=== PATIENT | female | born 1965 | race Caucasian/White ===

== ENCOUNTER 2020-11-11 19:21 | Emergency (ER) | payer OTHER ==
--- NOTE | 2020-11-11 20:48 | EDM.PDOC ---
ED HPI GENERAL MEDICAL PROBLEM - General Chief Complaint: Laceration Stated Complaint: FISH HOOK RIGHT HAND Time Seen by Provider: 11/11/20 20:34 Source of Information: Reports: Patient History Limitations: Reports: No Limitations - History of Present Illness INITIAL COMMENTS - FREE TEXT/NARRATIVE: Charles is a 54-year-old female presenting to the ED for evaluation of a fishhook in her right fourth finger. The patient was [place] [employer] and was in the process of getting out of the boat when her son lifted his pole snagging her with a fish floor with a trouble hook. They tried to remove the hook which only cause more pain and set the hook deeper into the distal pad of her right fourth finger. ED ROS GENERAL - Review of Systems Review Of Systems: See Below Musculoskeletal: Reports: Hand Pain ([place] embedded in the right fourth finger distal pad.) ED EXAM, SKIN/RASH Exam: See Below Exam Limited By: No Limitations General Appearance: Alert, No Apparent Distress Extremities: Normal Range of Motion, Normal Capillary Refill, Other ([place] embedded in the right fourth finger distal pad) ED SKIN PROCEDURES - Foreign Body Removal Indication:: [place] embedded in the distal right fourth finger pad. Consent Obtained:: Patient Performing Doctor:: Good [place] Anesthesia Type: Local (1% lidocaine 2 cc) Findings:: The fishhook was grasped using a needle oil truck driver and with slight rotation away from the antonio was able to extract it without any significant trauma.. A dressing was applied over the puncture wound. Course - Vital Signs Last Recorded V/S: Last Vital Signs Temp 36.1 C 11/11/20 20:35 Pulse 59 L 11/11/20 20:35 Resp 16 11/11/20 20:35 BP 122/75 11/11/20 20:35 Pulse Ox 100 11/11/20 20:35 - Orders/Labs/Meds Meds: Medications Discontinued Medications Generic Name Dose Route Start Last Admin Trade Name Susy PRN Reason Stop Dose Admin Lidocaine HCl 5 ml 11/11/20 19:23 Lidocaine 1% 5 Ml Sdv INJECT 11/11/20 19:24 ONETIME ONE - Re-Assessments/Exams Free Text/Narrative Re-Assessment/Exam: 11/11/20 20:46 The patient had an embedded fishhook that was used to fish in [facility] in [facility]. We will put her on cephalexin 500 mg 3 times daily for 5 days prophylactically. Tetanus status is being addressed. Departure - Departure Time of Disposition: 20:47 Disposition: Home, Self-Care 01 Clinical Impression: Puncture wound [place] injury to finger Qualifiers: Encounter type: initial encounter Laterality: right Qualified Code(s): S69.91XA - Unspecified injury of right wrist, hand and finger(s), initial encounter - Discharge Information Instructions: Puncture Wound Referrals: PCP,None [Primary Care Provider] - Care Plan Goals: Because the hook was used to fish in [facility], we will put you on cephalexin 500 mg 3 times a day for 5 days to protect for infection. Please keep the wound clean and dry for the next 24 hours until the scab forms. Sepsis Event Note (ED) - Focused Exam Vital Signs: Vital Signs Temp Pulse Resp BP Pulse Ox 11/11/20 20:35 36.1 C 59 L 16 122/75 100 - Problem List & Annotations (1) [place] injury to finger SNOMED Code(s): 93292625 Code(s): S69.90XA - UNSP INJURY OF UNSP WRIST, HAND AND FINGER(S), INIT ENCNTR Status: Acute Priority: Low Current Visit: Yes Qualifiers: Encounter type: initial encounter Laterality: right Qualified Code(s): S69.91XA - Unspecified injury of right wrist, hand and finger(s), initial encounter (2) Puncture wound SNOMED Code(s): 978000134 Code(s): T14.8XXA - OTHER INJURY OF UNSPECIFIED BODY REGION, INITIAL ENCOUNTER Status: Acute Priority: Low Current Visit: Yes - Problem List Review Problem List Initiated/Reviewed/Updated: Yes
[2020-11-11] MEDS ORDERED: Diphtheria,Pertussis(Acell),Tetanus Vaccine 0.5 ML Syringe IM ONE (21:00)
== END 2020-11-11 21:21 | disposition home or self-care (01) ==
LOC: JP.ED 19:21
DX: S61.244A Puncture wound with foreign body of right ring finger without damage to nail, initial encounter (principal); Z23 Encounter for immunization; W27.3XXA Contact with needle (sewing), initial encounter
CPT/HCPCS: 90471; 90715; 99282